=== PATIENT | female | born 1990 | race Caucasian/White ===

== ENCOUNTER 2017-02-12 22:18 | Emergency (ER) | payer MEDICAID, OTHER ==
[2017-02-12 23:05] LABS: Appearance,Urine Clear (Clear); Bacteria,Urine Rare /hpf; Bilirubin,Urine Negative (Negative); Glucose,Urine (UA) Negative (Negative); Ketones,Urine Negative (Negative); Leukocyte Esterase,Urine Trace (Negative); Nitrite,Urine Negative (Negative); PH, Urine 6.5 (5.0-8.0); Particle Count 2297; Protein,Urine Negative (Negative); RBC,Urine 1 /hpf (0-5); Specific Gravity,Urine 1.005 (1.001-1.035); Squamous Epithelial Cell,Urine 2 /hpf (0-4); UA Billing (MACRO vs. MICRO) MICRO; Urobilinogen,Urine <2.0 mg/dL (<2.0); WBC,Urine 2 /hpf (0-5)
--- NOTE | 2017-02-12 23:08 | ED ---
Abdominal Pain HPI <Darshan Hyman - Last Filed: 02/13/17 01:39> - General Source: patient, RN notes reviewed Mode of arrival: ambulatory Limitations: no limitations <La Chaudhary - Last Filed: 02/13/17 04:24> - General Chief Complaint: Abdominal Pain Stated Complaint: abdominal & back pain/14 wks preg Time Seen by Provider: 02/12/17 22:33 - History of Present Illness Initial Comments: Patient is 26-year-old female presents to the emergency room for evaluation of abdominal pain. Patient states she is about 13 weeks . Patient states over the past few days she's been having right lower quadrant pain. Patient states it's radiating to her back. Patient states he got worse today so she thought she should be evaluated. Patient does states she has a confirmed IUP at 6 weeks . Patient states she follows up with Dr. Moore. Patient denies any pain or burning during urination, trouble urinating or blood in urine. Patient denies abnormal vaginal discharge or vaginal bleeding. Patient denies nausea or vomiting. Patient denies headaches or dizziness. Patient denies fevers or chills. Patient denies history of abdominal surgeries. (La Chaudhary) - Related Data Home Medications Medication Instructions Recorded Confirmed Pnv No.95/Ferrous Fum/Folic AC 1 tab PO DAILY 02/12/17 02/12/17 [ Multivitamin Tablet] Allergies Allergy/AdvReac Type Severity Reaction Status Date / Time No Known Allergies Allergy Verified 02/12/17 22:51 Review of Systems ROS Other: All systems not noted in ROS Statement are negative. <Darshan Hyman - Last Filed: 02/13/17 01:39> ROS Other: All systems not noted in ROS Statement are negative. <La Chaudhary - Last Filed: 02/13/17 04:24> ROS Statement: Those systems with pertinent positive or pertinent negative responses have been documented in the HPI. Past Medical History Additional Past Medical History / Comment(s): gestational HTN with previous History of Any Multi-Drug Resistant Organisms: None Reported Additional Past Surgical History / Comment(s): carpal tunnel left wrist Past Psychological History: Anxiety Smoking Status: Never smoker Past Alcohol Use History: None Reported Past Drug Use History: None Reported <La Chaudhary - Last Filed: 02/13/17 04:24> General Exam <Darshan Hyman - Last Filed: 02/13/17 01:39> Limitations: no limitations General appearance: alert, in no apparent distress Head exam: Present: atraumatic, normocephalic, normal inspection Eye exam: Present: normal appearance ENT exam: Present: normal exam Neck exam: Present: normal inspection Respiratory exam: Present: normal lung sounds bilaterally. Absent: respiratory distress Cardiovascular Exam: Present: regular rate, normal rhythm, normal heart sounds GI/Abdominal exam: Present: soft, tenderness (RLQ), normal bowel sounds. Absent : distended, guarding, rebound, rigid Extremities exam: Present: normal inspection Back exam: Present: normal inspection Neurological exam: Present: alert, oriented X3, CN II-XII intact Psychiatric exam: Present: normal affect, normal mood Skin exam: Present: warm, dry, intact, normal color. Absent: rash <La Chaudhary - Last Filed: 02/13/17 04:24> - General Exam Comments Initial Comments: sitting in exam room, no acute distress. (La Chaudhary) Medical Decision Making - Radiology Data Radiology results: report reviewed, image reviewed <La Chaudhary - Last Filed: 02/13/17 04:24> - Medical Decision Making Patient reevaluated by myself, Dr. Hyman. Abdomen soft with minimal tenderness right lower quadrant. No guarding. Psoas sign negative. No discomfort with heel tap. Patient denies having fevers. Patient states symptoms have been present for 3-4 days and were worse somewhat earlier however now have greatly improved. Patient states she does feel comfortable with her symptoms and is comfortable with discharge home. Patient is agreeable to close follow-up and is recommended to follow-up tomorrow with both her primary care physician and OB /LICENSED NURSE PRACTITIONER. Patient is advised if symptoms worsen to return and patient could have further evaluation including repeat ultrasound or other. (Darshan Hyman) - Lab Data Lab Results 02/12/17 Range/Units 22:42 Urine Color Light Yellow Urine Appearance Clear (Clear) Urine pH 6.5 (5.0-8.0) Ur Specific [place] 1.005 (1.001-1.035) Urine Protein Negative (Negative) Urine Glucose (UA) Negative (Negative) Urine Ketones Negative (Negative) Urine Blood Trace H (Negative) Urine Nitrite Negative (Negative) Urine Bilirubin Negative (Negative) Urine Urobilinogen <2.0 (<2.0) mg/dL Ur Leukocyte Esterase Trace H (Negative) Urine RBC 1 (0-5) /hpf Urine WBC 2 (0-5) /hpf Ur Squamous Epith Cells 2 (0-4) /hpf Urine Bacteria Rare H (None) /hpf Disposition <Darshan Hyman - Last Filed: 02/13/17 01:39> Time of Disposition: 01:42 <La Chaudhary - Last Filed: 02/13/17 04:24> Clinical Impression: Abdominal pain affecting Disposition: HOME SELF-CARE Condition: Good Instructions: Abdominal Pain in (ED) Additional Instructions: Please follow up with primary care provider or MOTOR ADJUSTER tomorrow. Take Tylenol as needed for pain. If any new symptom arises or symptoms worsen, return to ER as soon as possible. Referrals: Sierra Arevalo MD [Primary Care Provider] - 1-2 days Alissa Moore DO [Doctor of Osteopathic Medicine] - 1-2 days
--- NOTE | 2017-02-12 23:41 | US ---
EXAM: US First Trimester, Transabdominal CLINICAL HISTORY: Reason: Pain TECHNIQUE: Real-time transabdominal obstetrical ultrasound of the maternal pelvis and a first trimester with image documentation. COMPARISON: No relevant prior studies available. FINDINGS: Gestation: Single IUP. CRL: 7.92 cm (13 weeks/6 days) Heart Rate: 163 bpm Placenta/amniotic fluid: Cannot be adequately evaluated due to the early gestational age. Uterus/cervix: Uterus: 16.8 x 8.8 x 10.9 cm No myometrial mass. Ovaries: Right Ovary: 3.4 x 1.8 x 3.0 cm Left Ovary: 2.6 x 1.5 x 1.9 cm No mass. Free fluid: No free fluid. IMPRESSION: No acute findings. Single live IUP of 13 weeks and 6 days. Size consistent with dates.
--- NOTE | 2017-02-13 00:42 | US ---
EXAM: US Abdomen Limited, Appendix CLINICAL HISTORY: Reason: Pain TECHNIQUE: Real-time ultrasound of the right lower quadrant with image documentation. COMPARISON: No relevant prior studies available. FINDINGS: Appendix: Appendix not visualized. Free fluid: No free fluid. IMPRESSION: Appendix not visualized.
[2017-02-13 01:54] VITALS: BP 129/70; PULSE 88; RESP 18; TEMP 98.4
== END 2017-02-13 01:53 | disposition home or self-care (01) ==
LOC: EC 22:18
DX: O26.891 Other specified pregnancy related conditions, first trimester (principal); R10.31 Right lower quadrant pain; Z3A.13 13 weeks gestation of pregnancy
CPT/HCPCS: 76705; 76801; 81001; 99284